=== PATIENT | female | born 1965 | race Caucasian/White ===

== ENCOUNTER 2016-10-04 14:21 | Emergency (ER) | payer BC, MEDICAID ==
[~2016-10-04] VITALS: Ht 176.5 cm; Wt 70.4 kg
[2016-10-04 14:39] VITALS: BP 116/74
[2016-10-04] MEDS ORDERED: HYDR-3307 PO (15:00)
[2016-10-04] MEDS ORDERED: GABA300C10 PO (15:00)
[2016-10-04] MEDS ORDERED: DIAZ5TAB4 PO (15:00)
[2016-10-04] MEDS ORDERED: LOSA100T6 PO (15:00)
[2016-10-04] MEDS ORDERED: TRAZ100T15 PO (15:00)
[2016-10-04] MEDS ORDERED: KETOROLAC 30 MG/1 ML IM ONE (15:30)
[2016-10-04] MEDS ORDERED: KETOROLAC 30 MG/1 ML ONE (16:38)
== END 2016-10-04 16:56 | disposition home or self-care (01) ==
LOC: ED 16:50
DX: M25.552 Pain in left hip (principal); M25.551 Pain in right hip; G89.29 Other chronic pain; Z88.1 Allergy status to other antibiotic agents
CPT/HCPCS: 73502; 96372; 99284; J1885